=== PATIENT | female | born 1950 | race Caucasian/White ===

== ENCOUNTER 2024-03-02 08:31 | Outpatient (CLI) | payer OTHER, SELFPAY ==
--- NOTE | ~2024-03-02 | US_ITS ---
EXAMINATION: US aorta DATE: 03/02/2024 09:38 INDICATION: Abdominal aortic aneurysm without rupture TECHNIQUE: Grayscale, color Doppler, and pulsed Doppler images of the aorta and common iliac arteries were obtained. COMPARISON: None. FINDINGS: The proximal aorta measures 2.1 cm. The mid aorta measures 3.1 cm. The distal aorta measures 4.0 cm. The right common iliac artery measures 1.3 cm. The left common iliac artery measures 1.3 cm. IMPRESSION: 1. Fusiform distal abdominal aortic aneurysm measuring up to 4.0 cm in maximal diameter. Reviewed, dictated and finalized at location B. B[employer] TECHNICIAN
== END 2024-03-02 08:32 | disposition home or self-care (01) ==
LOC: ANHIMG 08:37
PROVIDERS: Visit Provider Specialist
DX: I71.40 Abdominal aortic aneurysm, without rupture, unspecified (principal)
CPT/HCPCS: 76775